=== PATIENT | female | born 1955 | race Caucasian/White ===

== ENCOUNTER 2018-03-29 16:03 | Emergency (ER) | payer OTHER, MEDICAID ==
[2018-03-29] MEDS ORDERED: VANCOMYCIN HCL/NORMAL SALINE 250 ML IV ONE (16:41)
--- NOTE | 2018-03-29 17:16 | EDPHY ---
H & P Stated Complaint: r leg pain/hx stasis ulcers and dvt Time Seen by Provider: 03/29/18 16:26 HPI/ROS: CHIEF COMPLAINT: Cellulitis HISTORY OF PRESENT ILLNESS: REVIEW OF SYSTEMS: A ten system review of systems was performed and is negative with the exception of the items mentioned in the HPI. She has a pruritic rash involving the face, arms, and right lower leg. This has been present for the past couple of weeks. She attributes this to a new pillow. She has been using a steroid cream and her pump servicer supervisor/oncologist is aware of this rash. Past medical history: 1. Anti thrombin 3 deficiency 2. Venous stasis Past surgical history: Social history: She cares for her 3 grandchildren. She is trying to cut back on tobacco use. General Appearance: Alert. Vital signs reviewed. Neck: No lymphadenopathy, supple. Respiratory: Lungs are clear to auscultation; no wheezes, rales, or rhonchi. Cardiovascular: Regular rate and rhythm; no murmur, rub, or gallop. Gastrointestinal: Abdomen is soft and nontender, no masses or organomegaly, bowel sounds normal. Skin: Warm and dry. Extremities: Chronic venous stasis most marked on the medial aspect of her right lower leg. She has an area of excoriation in the right medial lower leg. Warmth and erythema extending up the medial right lower leg on to the anteromedial thigh. Neurological: Alert and oriented. Moving all four extremities easily and equally. Psychiatric: Normal affect. - Personal History Current Tetanus Diphtheria and Acellular Pertussis (TDAP): Yes - Medical/Surgical History Hx Asthma: No Hx Chronic Respiratory Disease: No Hx Diabetes: No Hx Cardiac Disease: No Hx Renal Disease: No Hx Cirrhosis: No Hx Alcoholism: No Hx HIV/AIDS: No Hx Splenectomy or Spleen Trauma: No Other PMH: dvt toxic shock stasis ulcers - Social History Smoking Status: Current every day smoker Constitutional: Initial Vital Signs Temperature (C) 37.1 C 03/29/18 16:12 Heart Rate 79 03/29/18 16:12 Respiratory Rate 18 03/29/18 16:12 Blood Pressure 147/70 H 03/29/18 16:12 O2 Sat (%) 90 L 03/29/18 16:12 O2 Delivery Mode Room Air Allergies/Adverse Reactions: amoxicillin Allergy (Verified 03/30/18 19:38) cephalexin [From Keflex] Allergy (Verified 03/30/18 19:38) Cephalosporins Allergy (Verified 03/30/18 19:38) Iodine and Iodide Containing Produc Allergy (Verified 03/30/18 19:38) Penicillins Allergy (Verified 03/30/18 19:38) Home Medications: Medication Instructions Recorded Boniva 03/29/18 Chantix 03/29/18 Gabapentin 03/29/18 Hydrocodone-Acetamin 5-217/10 03/29/18 LORAZEPAM 03/29/18 Warfarin Sodium 03/29/18 ZOLPIDEM TARTRATE 03/29/18 Medical Decision Making ED Course/Re-evaluation: Right lower extremity cellulitis in the setting of venous stasis. Initially it was thought that she might be admitted to the hospital, a plan that she did not care for. I spoke with the midlevel practitioner working with Dr. Miranda and arranged for the patient to come to the emergency department where she could receive a dose of IV antibiotics. She received a dose of IV antibiotics, vancomycin 1 g. The plan was that she would then be seen in the infusion clinic tomorrow for repeat dosing and re-evaluation. Patient was fine with this plan and it in able to her to continue to care for her grandchildren. She is given phone number to call to make the arrangements tomorrow morning. We also reviewed danger signs. Differential Diagnosis: Considered a differential diagnosis that includes but is not limited to sepsis, cellulitis, lymphangitis, DVT. - Data Points Medications Given: Discontinued Medications Vancomycin/Sodium Chloride (Vancomycin 1 Gm (Premix)) 250 mls @ 250 mls/hr IV EDNOW ONE PRN Reason: Protocol Stop: 03/29/18 17:40 Last Admin: 03/29/18 16:50 Dose: 250 mls Departure - Departure Disposition: Home, Routine, Self-Care Clinical Impression: Cellulitis Qualifiers: Site of cellulitis: extremity Site of cellulitis of extremity: lower extremity Laterality: right Qualified Code(s): L03.115 - Cellulitis of right lower limb Condition: Good Instructions: Cellulitis (ED) Additional Instructions: Please call Uma tomorrow morning at 8:00 a.m.. She will that you know you need to do tomorrow to be re-evaluated. Her #[phone]. If you have fever, began to feel ill, develop any new or concerning symptoms, please be re-evaluated in the emergency department. Referrals: JOSE CARMICHAEL [Other] - As per Instructions Joshua Miranda MD [Medical Doctor] - As per Instructions
[2018-03-29 18:38] VITALS: BP 150/86
== END 2018-03-29 18:38 | disposition home or self-care (01) ==
DX: L03.115 Cellulitis of right lower limb (principal); I87.2 Venous insufficiency (chronic) (peripheral); D68.59 Other primary thrombophilia; F17.200 Nicotine dependence, unspecified, uncomplicated
CPT/HCPCS: 96365; 99284; J3370

== ENCOUNTER 2018-03-30 19:33 | Inpatient (IN) | payer OTHER, MEDICAID ==
--- NOTE | 2018-03-30 20:27 | EDPHY ---
H & P Stated Complaint: Leg ulcers-requires admit for IV abxs-[place]. Time Seen by Provider: 03/30/18 20:16 HPI/ROS: CHIEF COMPLAINT: Right lower extremity cellulitis, IV antibiotics needed HISTORY OF PRESENT ILLNESS: This is a 63-year-old female with history of antithrombin 3 deficiency and venous stasis. She was seen in the emergency department yesterday, by me. At that time she was treated with a dose of IV vancomycin for right lower extremity cellulitis. The plan was for her to receive repeat doses in the infusion clinic today. However, she did not receive a call back from the oncology office and no arrangements were made for her to be seen in the infusion clinic. She was told to come to the emergency department for admission. She presents to the emergency department at approximately 8:00 p.m.. She has done well throughout the day. She has been active. No new pain no change in the redness involving her right lower extremity. No fever. She does not feel ill in general. REVIEW OF SYSTEMS: A ten system review of systems was performed and is negative with the exception of the items mentioned in the HPI. Past medical history: Anti thrombin 3 deficiency Venous stasis Social history: She smokes cigarettes. She cares for her 3 grand children. General Appearance: Alert. Vital signs reviewed. Blood pressure 158/92. Afebrile. Eyes: Pupils equal and round, no conjunctival injection, no discharge. Anicteric. ENT, Mouth: Mucous membranes are moist, no oropharyngeal erythema or edema. Neck: No lymphadenopathy. Respiratory: Lungs are clear to auscultation; no wheezes, rales, or rhonchi. Cardiovascular: Regular rate and rhythm; no murmur, rub, or gallop. Gastrointestinal: Abdomen is soft and nontender, no masses or organomegaly, bowel sounds normal. Skin: Rash as per yesterday's note involving upper extremities medial aspect of right lower extremity. Back: Nontender to palpation over the thoracolumbar spine. No CVAT. Extremities: Right lower extremity venous stasis changes. There is a rash involving the medial aspect of her right lower extremity that is erythematous and macular. There are excoriations overlying this rash. She has a similar rash on her arms. She has warmth and erythema extending up the medial aspect of her right lower extremity from the calf to the thigh. No palpable abscesses. Neurological: Alert and oriented. Moving all four extremities easily and equally. Psychiatric: Normal affect. - Personal History Current Tetanus/Diphtheria Vaccine: Unsure Current Tetanus Diphtheria and Acellular Pertussis (TDAP): Unsure - Medical/Surgical History Hx Asthma: No Hx Chronic Respiratory Disease: No Hx Diabetes: No Hx Cardiac Disease: No Hx Renal Disease: No Hx Cirrhosis: No Hx Alcoholism: No Hx HIV/AIDS: No Hx Splenectomy or Spleen Trauma: No Other PMH: DVT, Anti-Thrombin B deficiency, toxic shock, stasis ulcers. - Social History Smoking Status: Heavy smoker Constitutional: Initial Vital Signs Temperature (C) 37.1 C 03/30/18 19:39 Heart Rate 73 03/30/18 19:39 Respiratory Rate 16 03/30/18 19:39 Blood Pressure 158/92 H 03/30/18 19:39 O2 Sat (%) 95 03/30/18 19:39 O2 Delivery Mode Room Air Allergies/Adverse Reactions: amoxicillin Allergy (Verified 03/30/18 19:38) cephalexin [From Keflex] Allergy (Verified 03/30/18 19:38) Cephalosporins Allergy (Verified 03/30/18 19:38) Iodine and Iodide Containing Produc Allergy (Verified 03/30/18 19:38) Penicillins Allergy (Verified 03/30/18 19:38) Home Medications: Medication Instructions Recorded Boniva 03/29/18 Chantix 03/29/18 Gabapentin 03/29/18 Hydrocodone-Acetamin 5-217/10 03/29/18 LORAZEPAM 03/29/18 Warfarin Sodium 03/29/18 ZOLPIDEM TARTRATE 03/29/18 Medical Decision Making ED Course/Re-evaluation: 63-year-old with right lower extremity cellulitis that received a dose of vancomycin yesterday. However, the plans for her to receive vancomycin the infusion clinic fell through when she has not had any follow-up dosing. She is being admitted to the hospital for further evaluation and treatment with antibiotics. I have ordered a 2nd dose of IV vancomycin today. She is not febrile and I do not suspect sepsis. She will be admitted to the hospitalist service. Differential Diagnosis: I considered a differential diagnosis that includes but is not limited to sepsis , cellulitis, lymphangitis, DVT, venous stasis. Departure - Departure Disposition: [facility] Inpatient Acute Clinical Impression: Cellulitis Qualifiers: Site of cellulitis: extremity Site of cellulitis of extremity: lower extremity Laterality: right Qualified Code(s): L03.115 - Cellulitis of right lower limb Condition: Good
[2018-03-30] MEDS ORDERED: VANCOMYCIN HCL/NORMAL SALINE 250 ML IV ONE (20:28)
[2018-03-30] MEDS ORDERED: ACETAMINOPHEN 325 MG TAB PO PRN (20:55)
[2018-03-30] MEDS ORDERED: ONDANSETRON 4 MG/2 ML VIAL IVP PRN (20:55)
[2018-03-30 21:04] LABS: PLATELET COUNT 212 10^3/uL (150-400)
[2018-03-30 21:13] LABS: INR 2.74 (0.83-1.16); PROTIME(PATIENT) 28.9 SEC (12.0-15.0)
[2018-03-30] MEDS ORDERED: ZOLPIDEM TARTRATE 5 MG TAB PO PRN (21:59)
--- NOTE | 2018-03-30 22:37 | GHP ---
DATE OF ADMISSION: 03/30/2018 CHIEF COMPLAINT: Cellulitis. HISTORY: Lorna is a 63-year-old female who was diagnosed with cellulitis yesterday in the emergency room, got a dose of IV vancomycin. The plan was for her to follow up at the Infusion Center at [facility] for further IV antibiotics today during the day, but these plan fell through an d she never got any further antibiotics as scheduled, so she came back to the emergency room this jairo viri and is now being admitted. This all started with flu-like symptoms on Monday night when she developed chills. The next day, jose rodriguez noticed pain in her right leg with some associated redness that has progressed since that time. Jose rodriguez has a patch down by her ankle and a couple other patches going up her leg with lymphangitic spread all way up to her groin. She is having some fevers. She recently bought a new gel pillow from a [employer] and it caused a rash which she subsequently believes was due to latex in th e pillow, and she still has persistent rash that proceeded 1st dose of IV vancomycin. She is already allergic to penicillin and cephalosporins. PAST MEDICAL HISTORY: 1. 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 2. Venous stasis ulceration status post venous ablation. MEDICATIONS: Please see computer record for full detailed list. ALLERGIES: Iodine, latex, amoxicillin cephalexin. SOCIAL HISTORY: She continues to smoke but is trying to quit, she is on Chantix. No alcohol she ret ches raising her 3 grandchildren because her daughter is an IV drug abuser. REVIEW OF SYSTEMS: Complete review of systems obtained. Review of systems negative on constitutiona l, HEENT, GI, pulmonary, cardiovascular, , hematologic, endocrine, psych, except for positives as i n HPI. FAMILY HISTORY: Reviewed, noncontributory to presenting complaint. PHYSICAL EXAMINATION: GENERAL: Well-developed, well-nourished female, in no acute distress. VITAL SIGNS: Temperature 37.1, pulse 73, blood pressure 158/92, saturating 95% on room air. EYES: Examin ation normal conjunctivae, pupils react to light. ENT normal ears, nose. Hearing intact. Normal te eth. Oropharynx moist. NECK: Trachea midline. No thyromegaly. CHEST: : Normal respiratory effo rt. Lungs clear to auscultation bilaterally. CARDIOVASCULAR: Regular rhythm. No murmur. No lower extremity edema. ABDOMEN: Soft, nontender. No hepatosplenomegaly. SKIN: Skin examination shows patches of erythema, 1 down by the ankle looks like it is starting in the area of chronic venous julia is changes and then it goes in a lymphangitic distribution up her leg all the way to the groin. MUSC ULOSKELETAL: No cyanosis, clubbing. Strength 5/5 upper and lower extremities. NEUROLOGIC: Cranial nerves intact, normal sensation light touch. PSYCHIATRIC: Alert oriented x3. Normal affect. Norm al judgment. Normal memory. LABORATORY DATA: White count 10.97, hematocrit 47.8, platelets 204. INR is 2.6, This case was discussed with Dr. Lopez regarding emergency room course and re-presentation today aft er not getting IV antibiotics during the day as planned. Medical record review, the ER record from reviewed, as well as laboratory studies. ASSESSMENT/PLAN: 1. Severe right lower extremity cellulitis with lymphangitic spread up to the groin. I do suspect s trep, however she is allergic to both penicillin and cephalosporin, so we will continue IV vancomycin for now. 2. 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 Continue warfarin. 3. Tobacco dependence. Continue Chantix. 4. Rash. The patient thinks it is an allergic reaction to latex in the pillow she just purchased. She could use hydrocortisone as needed. CODE STATUS: Full. ADMISSION STATUS: Will admit to observation. We will re-evaluate tomorrow. DVT PROPHYLAXIS: She is chronically anticoagulated on warfarin. /[id number]/MODL
[2018-03-31] MEDS ORDERED: GABAPENTIN 300 MG CAP ONE (01:18)
[2018-03-31] MEDS: GABAPENTIN 300 MG CAP PO SCH ×2 (01:19→22:00)
[2018-03-31] MEDS: VANCOMYCIN 1 GM in NS 250 ML IV SCH ×2 (10:13→22:00)
[2018-03-31] MEDS: VARENICLINE TARTRATE 1 MG TAB PO SCH ×2 (10:16→21:59)
--- NOTE | 2018-03-31 13:00 | ASMTCMCOM ---
CM Note CM Note Notes: Pt presented to the ED for the 2nd time in two days for RLE cellulitis and flu-like symptoms since Monday night. Pt was seen in the ED on 03/29 and d/c'd home to follow-up w/outpatient infusion center at [facility] the morning of 03/30. Pt said she called Uma at [facility] Infusion Center ([phone]) at 8a.m. as instructed but did not hear back from anyone until around 2:30p. Then it wasn't until 3:30pm that they discussed her getting the infusion but because the infusion center was closing at 5pm, pt lives in [place] and the infusion was going to take an hour, it was decided that the patient would go to the ED for her next Vanco dose. Pt admitted for RLE cellulitis w/lymphangitic spread up to the groin. Pt also has a hx of antithrombin III deficiency, DVT, and chronic venous stasis ulcer s/p venous ablation. Pt cares for her 3 grandchildren due to her daughter being an IV drug user. Pt states her grandchildren are currently with their grandfather and other family members are scheduled to assist as needed while she is in the hospital. Pt states she would like to go home as soon as able. We discussed the possibility of 1) trying again to set up outpatient infusion w/[facility] or 2) setting HC RN and Home Infusion for IV abx. Pt states she would be willing to be homebound if HC is an option. ID consult ordered. Exact treatment plan and DC needs unknown at this time. Anticipate pt to either DC Home Ind w/follow-up at outpt Infusion Ctr at [facility] or DC Home w/HC RN and HC Infusions for IV abx. CM to follow. Date Signed: 03/31/2018 01:00 PM Electronically Signed By:Fozia Chopra RN
[2018-03-31] MEDS ORDERED: PNEUMOCOCCAL 0.5ML VACCINE VIAL IM ONE (13:06)
[2018-03-31] MEDS ORDERED: HYDROCODONE/APAP 10/325 TAB PO PRN (13:10)
--- NOTE | 2018-03-31 14:46 | HOSPPROG ---
Hospitalist Progress Note Assessment/Plan: 63 yo F with hx of antithrombin 3 deficiency and prior DVT as well as chronic venous stasis wounds presenting with cellulitis # cellulitis: involving what appears to be an area of chronic wound on her right medial malleolar region and extending to her right groin, being treated with vanco for now with cultures pending. ID consulted. Appears to be improving some. # AT3 deficiency: continued on warfarin, US reviewed without e/o DVT # pain: currently well controlled on home dose of vicodin # IP status, will require > 48 hours stay for eval/mgmt of above Patient new to my care. Old records reviewed and summarized as above. Subjective: no significant overnight events, patient overall doing better, no fever or chills Objective: Vital Signs Temp Pulse Resp BP Pulse Ox 36.5 C 82 12 147/99 H 92 03/31/18 12:15 03/31/18 12:15 03/31/18 12:15 03/31/18 12:15 03/31/18 12:15 Laboratory Results 03/30/18 20:45 03/30/18 20:45 03/30/18 03/31/18 04/01/18 05:59 05:59 05:59 Intake Total 500 Balance 500 PT 28.9 SEC (12.0-15.0) H 03/30/18 20:45 INR 2.74 (0.83-1.16) H 03/30/18 20:45 awake alert anicteric op clear rrr no mrg cta b soft nt nd bilateral ankles with hyperpigmentation and skin thickening, right with erythema and erythema present in right groin with associated LAD warm dry oriented appropriate - Time Spent With Patient Time Spent with Patient: greater than 35 minutes Time Spent with Patient: Greater than 35 minutes spent on this patients care, greater than 50% of time spent counseling, educating, and coordinating care regarding the above mentioned plan. ICD10 Worksheet Patient Problems: Problems Problem Status Onset Cellulitis Acute Cellulitis Acute
[2018-03-31] MEDS: HYDROCORTISONE 1% CREAM TP SCH ×2 (15:38→22:01)
[2018-03-31] MEDS: WARFARIN SODIUM 5 MG TAB PO SCH (15:44)
--- NOTE | 2018-03-31 17:57 | PDMN ---
Medical Necessity Medical necessity: Change to IP, as of 03/31/18, per & MCG M-70; los >2 mn for ongoing management of RLE cellulitis w/lymphangtic spread to groin; requiring further monitoring, ID consult & IV abx; hx antithrombin 3 deficiency/ DVT on AC, chronic venous stasis wounds
--- NOTE | 2018-03-31 22:47 | GCON ---
INPATIENT INFECTIOUS DISEASE CONSULTATION REFERRING PHYSICIAN: Sheri Dyer MD REASON FOR REFERRAL: Right lower extremity lymphangitis. HISTORY OF PRESENT ILLNESS: Patient is a 63-year-old female with underlying antithrombin III deficie ncy, who has had chronic issues with lower extremity ulcers from venous insufficiency. The patient w as able, over the last year, to get these ulcers to finally heal. However, she [facility] on evening with complaints of redness above her knee in the right lower extremity . This redness stretched up into her inguinal region on that side. The patient was given a dose of vancomycin and discharged and instructed to follow up with her rotary pump operator the next day. This was u nable to happen and the patient re-presented back to the emergency room last night for continued anti biotic management. She was admitted. She was continued on vancomycin 1 g IV q.12 hours. She report s significant improvement in the erythema and tenderness in the right lower extremity since yesterday . She denies any current fevers or chills. PAST MEDICAL HISTORY: 1. Antithrombin III deficiency with a history of deep venous thrombosis. 2. Chronic venous stasis ulcerations, status post venous ablation. PAST SURGICAL HISTORY: None noted. ANTIBIOTICS: Vancomycin. ALLERGIES: Patient is allergic to iodine, latex, amoxicillin and cephalexin. SOCIAL HISTORY: The patient is a continued tobacco user. Denies alcohol use. FAMILY HISTORY: Reviewed but noncontributory. REVIEW OF SYSTEMS: Other than that detailed above in history of present illness, a comprehensive 10- system review is negative. PHYSICAL EXAMINATION: VITAL SIGNS: Temperature maximum 37.1, temperature current 36.7, heart rate 6 5, respiratory rate 12, blood pressure 146/102. GENERAL: The patient is a well-formed, well-nourish ed older female in no acute distress. She is not toxic in appearance. She is alert and oriented x3. She has a pleasant demeanor. HEENT: Normocephalic for age. Atraumatic. No scleral icterus. No oral lesion or drainage from the nares. Eyes, lids, conjunctivae are within normal limits. Pupils a re equal and round bilaterally. NECK: Supple. No meningismus. LUNGS: Clear to auscultation bilat erally with good effort. HEART: Regular rate and rhythm. No significant peripheral edema. SKIN: Warm and dry to the touch. The patient has discontiguous patches of erythema in the right inguinal a yissel as well as down the medial aspect of her thigh and just above the right knee. She has chronicall y discolored hemosiderin stained skin on her medial aspect of her lower legs bilaterally in her ankle s. She has no open wounds in these areas. There is no active inflammation there. LABORATORY DATA: Patient has a CBC dated 03/30/2018, shows a white blood cell count of 7.3, hemoglob in 15.6, hematocrit of 46.3, and a platelet count of 212. Differential is within normal limits. Ser um chemistries on 03/30/2018, are all within normal limits. Creatinine 0.6. MICROBIOLOGIC DATA: Patient has blood cultures dated 03/30/2018, which are pending. ASSESSMENT: Probable bacterial ascending lymphangitis in the right lower extremity. Agree with vanc omycin coverage. At this point, I suspect that she will only need another day or so of IV vancomycin and will likely be able to switch to oral antibiotic for discharge. We will check on her clinical s tatus tomorrow and make decisions. PLAN: 1. Continue IV vancomycin at q.12 dosing for now. 2. Follow up on her appearance of her erythema tomorrow. /[id number]/MODL
[2018-04-01 05:13] LABS: INR 2.31 (0.83-1.16); PROTIME(PATIENT) 25.4 SEC (12.0-15.0)
[2018-04-01] MEDS: VARENICLINE TARTRATE 1 MG TAB PO SCH (09:12)
[2018-04-01] MEDS: HYDROCORTISONE 1% CREAM TP SCH (09:13)
[2018-04-01] MEDS: VANCOMYCIN 1 GM in NS 250 ML IV SCH (10:23)
--- NOTE | 2018-04-01 15:00 | HOSPPROG ---
Hospitalist Progress Note Assessment/Plan: 63 yo F with hx of antithrombin 3 deficiency and prior DVT as well as chronic venous stasis wounds presenting with cellulitis # cellulitis: involving what appears to be an area of chronic wound on her right medial malleolar region and extending to her right groin, being treated with vanco for now with cultures pending. ID consulted and recommends continued vanco for now. Overall erythema seems to be improving but there is some slight extension in the thigh region. # AT3 deficiency: continued on warfarin, US reviewed without e/o DVT # pain: currently well controlled on home dose of vicodin # IP status, will require > 48 hours stay for eval/mgmt of above Subjective: no significant overnight events, patient notes that she is overall feeling better Objective: Vital Signs Temp Pulse Resp BP Pulse Ox 36.8 C 65 16 146/76 H 93 04/01/18 11:41 04/01/18 11:41 04/01/18 11:41 04/01/18 11:41 04/01/18 11:41 03/31/18 04/01/18 04/02/18 05:59 05:59 05:59 Intake Total 2049 Balance 2049 PT 25.4 SEC (12.0-15.0) H 04/01/18 04:43 INR 2.31 (0.83-1.16) H 04/01/18 04:43 awake alert anicteric op clear rrr no mrg cta b soft nt nd bilateral ankles with hyperpigmentation and skin thickening, right with erythema and erythema present in right groin with associated LAD warm dry oriented appropriate - Time Spent With Patient Time Spent with Patient: greater than 35 minutes Time Spent with Patient: Greater than 35 minutes spent on this patients care, greater than 50% of time spent counseling, educating, and coordinating care regarding the above mentioned plan. ICD10 Worksheet Patient Problems: Problems Problem Status Onset Cellulitis Acute Cellulitis Acute
--- NOTE | 2018-04-01 15:14 | PDDCSUM ---
Discharge Summary Discharge Summary: Dates of service 03/30-04/01/18 Consultations: ID Procedures performed: none Hospital course by problem: 63 yo F with hx of antithrombin 3 deficiency and prior DVT as well as chronic venous stasis wounds presenting with cellulitis # cellulitis: involving what appears to be an area of chronic wound on her right medial malleolar region and extending to her right groin, overall improving, patient with multiple allergies and will dc on azithromycin for another 7 days per ID. # AT3 deficiency: continued on warfarin, US reviewed without e/o DVT, continue AC # pain: currently well controlled on home dose of vicodin DC home f/u with PCP > 35 min spent in dc of patient more than half in coordination of care
[2018-04-01 15:19] VITALS: BP 167/77
--- NOTE | 2018-04-01 15:48 | ASDISCHSUM ---
Discharge Information Plan Status:Home with No Needs Medically Cleared to Leave:04/01/2018 Discharge Date:04/01/2018 CM D/C Disposition:Home, Routine, Self-Care ADT D/C Disposition:Home, Routine, Self-Care Projected Discharge Date:04/01/2018 Transportation at D/C: Discharge Delay Reason: Follow-Up Date:04/01/2018 Discharge Slot: Final Diagnosis: Placement Information Patient Contact Information Contact Name:MILAGROS Relationship:Daughter Address: Work Phone: City: [facility] Phone: State/Zip Code: Email: Financial Information Financial Class:Medicare Primary Plan Desc:MEDICARE OUTPATIENT Primary Plan Number:[id number] Secondary Plan Desc:MEDICAID [place] [place] Secondary Plan Number:[id number] Assessment Information [facility] CM Progress Note CM Note CM Note Notes: Pt presented to the ED for the 2nd time in two days for RLE cellulitis and flu-like symptoms since Monday. Pt was seen in the ED on 03/29 and d/c'd home to follow-up w/outpatient infusion center at [facility] the morning of 03/30. Pt said she called Uma at [facility] ([phone]) at 8a.m. as instructed but did not hear back from anyone until around 2:30p. Then it wasn't until 3:30pm that they discussed her getting the infusion but because the infusion center was closing at 5pm, pt lives in [place] and the infusion was going to take an hour, it was decided that the patient would go to the ED for her next Vanco dose. Pt admitted for RLE cellulitis w/lymphangitic spread up to the groin. Pt also has a hx of antithrombin III deficiency, DVT, and chronic venous stasis ulcer s/p venous ablation. Pt cares for her 3 grandchildren due to her daughter being an IV drug user. Pt states her grandchildren are currently with their grandfather and other family members are scheduled to assist as needed while she is in the hospital. Pt states she would like to go home as soon as able. We discussed the possibility of 1) trying again to set up outpatient infusion w/[facility] or 2) setting HC RN and Home Infusion for IV abx. Pt states she would be willing to be homebound if HC is an option. ID consult ordered. Exact treatment plan and DC needs unknown at this time. Anticipate pt to either DC Home Ind w/follow-up at outpt Infusion Ctr at [facility] or DC Home w/HC RN and HC Infusions for IV abx. CM to follow. Date Signed: 03/31/2018 01:00 PM Electronically Signed By:Fozia Chopra RN LACE LACE Acuity / Level of Answers: No Care: Did the patient have an inpatient admission? 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 Answers: Yes Patient to Obtain Answers: Independently Medications Discharge Comments Notes: 04/01/2018 Case Management Note Per hospitalist , pt to discharge on azithromycin oral meds. No further case management d/c needs identified. Case Management d/c: Independent with follow up as directed. Date Signed: 04/01/2018 03:47 PM Electronically Signed By:Charisse Pa RN Intervention Information
[2018-04-01] MEDS: WARFARIN SODIUM 5 MG TAB PO SCH (15:53)
--- NOTE | 2018-04-01 17:35 | PCMIDPN ---
Assessment/Plan: Assessment: Right lower extremity cellulitis. Moreover presentation of ascending lymphangitis. Improved with IV vancomycin. Patient is unable to take penicillins or cephalosporins. It is okay for her to discharge on azithromycin 500 mg p.o. Daily for total of 7 more days. She is to follow up with her primary care physician within 1 week. Plan: 1. Discontinue IV vancomycin. 2. Start azithromycin 500 mg p.o. Daily x7 days. 3. Discharge from hospital and arrange follow-up with primary care physician in 7 days. 04/01/18 17:33 04/01/18 17:33 Subjective: Patient is resting in her hospital room. She states that her redness and swelling in her right lower extremity is much better. Denies any fevers or chills. Objective: Vancomycin # 2 Vital Signs Temp Pulse Resp BP Pulse Ox 36.6 C 66 18 167/77 H 92 04/01/18 15:16 04/01/18 15:16 04/01/18 15:16 04/01/18 15:16 04/01/18 15:16 03/31/18 04/01/18 04/02/18 05:59 05:59 05:59 Intake Total 2049 Balance 2049 - Physical Exam General Appearance: WD/WN, alert, no apparent distress, non-toxic Respiratory: lungs clear, normal breath sounds, No respiratory distress Cardiac/Chest: regular rate, rhythm, No tachycardia Extremities: non-tender, inflammation (Mild right lower extremity), erythema ( Mild upper thigh right lower extremity), No normal inspection Skin: normal color, warm/dry, No rash Neuro/Psych: alert, normal mood/affect, oriented x 3 ICD10 Worksheet Patient Problems: Problems Problem Status Onset Cellulitis Acute Cellulitis Acute
== END 2018-04-01 16:30 | disposition home or self-care (01) | DRG 603 ==
LOC: F3E 03-31 12:04 → OBSVTOIN 03-31 17:28
PROVIDERS: ADMIT Internal Medicine; ATTEND Internal Medicine
DX: L03.115 Cellulitis of right lower limb (principal); D68.59 Other primary thrombophilia; I87.8 Other specified disorders of veins; R21 Rash and other nonspecific skin eruption; F17.210 Nicotine dependence, cigarettes, uncomplicated; Z86.718 Personal history of other venous thrombosis and embolism; Z23 Encounter for immunization
CPT/HCPCS: 96365; 96366; G0008; G0009; G0378; J3370